=== PATIENT | female | born 1990 | race Caucasian/White ===

== ENCOUNTER 2019-01-29 18:13 | Emergency (ER) | payer OTHER ==
[~2019-01-29] VITALS: Ht 165.1 cm; Wt 59.0 kg
[2019-01-29 18:55] LABS: ABSOLUTE EOSINOPHILS 0.1 thou/uL (0.0-0.7); ABSOLUTE LYMPHOCYTES 2.5 thou/uL (0.8-5.3); ABSOLUTE MONOCYTES 0.6 thou/uL (0.0-1.2); ABSOLUTE NEUTROPHILS 3.2 thou/uL (1.6-8.1); BASOPHILS 0.4 %; HEMATOCRIT 33.7 % (37.0-47.0); HEMOGLOBIN 11.2 gm/dL (12.0-15.0); LYMPHOCYTES 38.9 %; MCHC 33.2 g/dL (28.0-37.0); MCV 78.2 fL (80.0-100.0); MPV 9.4 fl. (7.2-11.1); NUCLEATED RBCS 0 /100WBC; PLATELET COUNT* 194 thou/uL (150-400); POLYS 50.7 %; RBC 4.31 mil/uL (4.20-5.00); RDW-CV 17.2 % (10.5-14.5); WBC 6.3 thou/uL (4.0-11.0)
[2019-01-29 19:05] LABS: CALCIUM 8.3 mg/dL (8.5-10.1); INR 1.1; POTASSIUM 3.3 mmol/L (3.5-5.1); PROTIME 11.3 Seconds (9.20-11.50)
[2019-01-29 19:09] LABS: ALBUMIN 4.1 g/dL (3.4-5.0); TOTAL BILIRUBIN 0.2 mg/dL (<0.1-1.0); TOTAL PROTEIN 7.7 g/dL (6.4-8.2)
[2019-01-29 19:14] LABS: INFLUENZA A ANTIGEN Negative (Negative); INFLUENZA B ANTIGEN Negative (Negative)
[2019-01-29] MEDS ORDERED: MEDROLDOSEPACK PO (19:41)
[2019-01-29] MEDS ORDERED: TRAMADOL 50 MG50 MG PO (19:41)
[2019-01-29 20:14] VITALS: BP 106/82
--- NOTE | 2019-01-30 10:20 | EKG ---
[place] [address] ELECTROCARDIOGRAM REPORT Name: BRIGID DIXON [id number] Admission: 01/29/19 Attend Phys: Discharge: 01/29/19 Date of : 86 Report #: [id number] THIS REPORT FOR: //name// [facility] ED Test Date: 2019-01-29 Test Time: 18:54:38 Pat Name: BRIGID DIXON Department: Room: Gender: F [employer]: [place] : 1990 Requested By: Francis Rushing Order Number: [id number] MD: Deven Melo Measurements Intervals [place] Rate: 77 P: 42 KS: 115 QRS: 31 QRSD: 95 T: 52 QT: 374 QTc: 424 Interpretive Statements Sinus rhythm Borderline short [place] interval Probable left atrial enlargement RSR' in V1 or V2, probably normal variant No previous ECG available for comparison Electronically Signed On 01-30-2019 10:20:36 RECEPTION SPECIALIST by Deven Melo [email or web address] <ELECTRONICALLY SIGNED> By: Deven Melo MD, [facility] 01/30/19 1020 D: 11/1853 53 Deven Melo MD, FACC /EPI
== END 2019-01-29 20:29 | disposition home or self-care (01) ==
LOC: M.ERS 18:13
PROVIDERS: Nurse Practitioner Psychiatric/Mental Health
DX: R07.81 Pleurodynia (principal); F41.9 Anxiety disorder, unspecified; R06.02 Shortness of breath; Z88.8 Allergy status to other drugs, medicaments and biological substances